=== PATIENT | male | born 1980 | race African-American/Black ===

== ENCOUNTER 2019-08-06 10:06 | Inpatient (IN) ==
[2019-08-06 11:07] LABS: Basophils % 0.6 % (0.0-0.8); Eosinophils # 0.1 10*3/uL (0.0-0.87); Eosinophils % 1.3 % (0.00-10.9); Hematocrit 53.7 VOL% (42.0-52.0); Hemoglobin 16.6 GM/DL (14.0-18.0); Immature Granulocytes % 0.4 %; Immature Granulocytes Absolute 0.03 #; Lymphocytes # 1.8 10*3/uL (1.4-4.0); Lymphocytes % 24.9 % (21.2-54.2); Mean Corpuscular HGB Conc 30.9 GM/DL (32-36); Mean Corpuscular Volume 87.2 FL (87-102); Mean Platelet Volume 10.7 FL (9.6-12.0); Monocytes % 9.4 % (1.7-12.7); Neutrophils % 63.4 % (38.7-73.9); Platelet Count 233 T/CUMM (130-400); Red Blood Count 6.16 MC/CUMM (3.8-5.5); Red Cell Distribution Width 17.3 % (9.3-17.3); White Blood Count 7.2 T/CUMM (4-12)
[2019-08-06 11:21] LABS: Calcium 8.3 MG/DL (8.5-10.1); Osmolality,Calculated 274.5 MOS/KG (273-304)
[2019-08-06] MEDS ORDERED: amLODIPine 5 MG TABLET PO STA (11:25)
[2019-08-06] MEDS ORDERED: LABETALOL 20 MG/4 ML SYRINGE IV STA (11:25)
[2019-08-06] MEDS ORDERED: ALBUTEROL/IPRATROPIUM 3 ML NEB RESP TX STA (11:33)
[2019-08-06 12:26] LABS: ABG Base Excess 4.1 MMOL/L (-2.5-2.5); ABG HCO3 27.9 MMOL/L (20-26); ABG PCO2 63.4 MM HG (35-48); ABG PH 7.326 (7.35-7.45); ABG PO2 68.4 MM HG (80-95); ABG TCO2 27.9 MMOL/L (23-27); Allen Test Positive
[2019-08-06] MEDS ORDERED: ACETAMINOPHEN 325 MG TABLET PO PRN (13:28)
[2019-08-06] MEDS ORDERED: ONDANSETRON 4 MG/2 ML VIAL IV PRN (13:28)
[2019-08-06] MEDS ORDERED: ALBUTEROL 2.5 MG/3 ML NEB RESP TX PRN (13:28)
[2019-08-06] MEDS ORDERED: ALBUTEROL/IPRATROPIUM 3 ML NEB RESP TX PRN (13:28)
[2019-08-06] MEDS ORDERED: LACTULOSE 20 GM/30 ML UDCUP PO PRN (13:28)
[2019-08-06] MEDS ORDERED: niCARdipine INJ 25 MG in SODIUM CHLORIDE 0.9% 240 ML IV PRN (13:32)
[2019-08-06 14:11] LABS: Risk Ratio 2.25; Thyroid Stimulating Hormone 0.345 uIU/ml (0.358-3.74)
[2019-08-06] MEDS ORDERED: hydrALAZINE 20 MG/1 ML VIAL IV ONE (14:49)
[2019-08-06] MEDS ORDERED: hydrALAZINE 20 MG/1 ML VIAL ONE (14:51)
[2019-08-06] MEDS ORDERED: hydrALAZINE 20 MG/1 ML VIAL IV PRN (15:03)
[2019-08-06] MEDS: SODIUM CHLORIDE 0.45% 1,000 ML IV SCH (15:20)
[2019-08-06] MEDS: methylPREDNISolone SOD SUC 40 MG/1 ML VIAL IV SCH ×2 (15:25→22:46)
[2019-08-06] MEDS: cefTRIAXone 1,000 MG in SYRINGE 1 EACH IV SCH (15:30)
[2019-08-06] MEDS: LOSARTAN 25 MG TABLET PO SCH ×2 (15:35→20:40)
[2019-08-06 16:07] LABS: ABG HCO3 28.8 MMOL/L (20-26); ABG Oxygen Saturation 94.3 % (95-100); ABG PCO2 56.9 MM HG (35-48); ABG PH 7.368 (7.35-7.45); ABG PO2 70.1 MM HG (80-95); ABG TCO2 27.3 MMOL/L (23-27); Allen Test Positive; Pt O2 Delivery Device BIPAP
[2019-08-06 17:17] LABS: Barbiturates Screen,Urine Negative (Negative); Benzodiazepines Screen,Urine Negative (Negative); Cannabinoid Screen,Urine Negative (Negative); Opiate Screen,Urine Negative (Negative); Phencyclidine Screen,Urine Negative (Negative)
[2019-08-06] MEDS ORDERED: LABETALOL 20 MG/4 ML SYRINGE IV PRN (18:06)
[2019-08-06] MEDS: FAMOTIDINE 20 MG/2 ML VIAL IV SCH (20:37)
[2019-08-06] MEDS: ENOXAPARIN 40 MG/0.4 ML SYRINGE SUBCUT SCH (20:39)
[2019-08-07] MEDS: SODIUM CHLORIDE 0.45% 1,000 ML IV SCH (00:12)
[2019-08-07 02:42] LABS: ABG HCO3 25.3 MMOL/L (20-26); ABG Oxygen Saturation 96.8 % (95-100); ABG PH 7.265 (7.35-7.45); ABG PO2 98.1 MM HG (80-95); ABG TCO2 26.6 MMOL/L (23-27)
[2019-08-07 02:48] LABS: ABG PCO2 69.7 MM HG (35-48)
[2019-08-07 04:38] LABS: Alanine Aminotransferase 22 U/L (16-61); Albumin 3.4 G/DL (3.4-5.0); Alkaline Phosphatase 81 U/L (45-117); Aspartate Amino Transferase 15 U/L (0-37); Bilirubin,Total < 0.39 MG/DL (0.2-1.0); Blood Urea Nitrogen 11 MG/DL (7-18); Calcium 9.2 MG/DL (8.5-10.1); Estimated Glom Filtration Rate 132 ML/MIN; Glucose 163 MG/DL (74-106); Osmolality,Calculated 283.3 MOS/KG (273-304); Total Protein 8.1 G/DL (6.4-8.3)
[2019-08-07 04:43] LABS: Basophils % 0.3 % (0.0-0.8); Hematocrit 53.5 VOL% (42.0-52.0); Hemoglobin 16.5 GM/DL (14.0-18.0); Immature Granulocytes % 0.5 %; Immature Granulocytes Absolute 0.04 #; Lymphocytes # 0.4 10*3/uL (1.4-4.0); Lymphocytes % 5.8 % (21.2-54.2); Mean Corpuscular HGB Conc 30.8 GM/DL (32-36); Mean Corpuscular Volume 87.7 FL (87-102); Mean Platelet Volume 11.8 FL (9.6-12.0); Monocytes % 1.8 % (1.7-12.7); Neutrophils % 91.6 % (38.7-73.9); Platelet Count 267 T/CUMM (130-400); Red Cell Distribution Width 17.6 % (9.3-17.3); White Blood Count 7.6 T/CUMM (4-12)
[2019-08-07 04:44] LABS: ABG Base Excess 1.1 MMOL/L (-2.5-2.5); ABG HCO3 25.2 MMOL/L (20-26); ABG Oxygen Saturation 95.4 % (95-100); ABG PH 7.258 (7.35-7.45); ABG PO2 85.1 MM HG (80-95); Allen Test Positive; Pt O2 Delivery Device BIPAP
[2019-08-07 04:48] LABS: ABG PCO2 71.3 MM HG (35-48)
[2019-08-07] MEDS: hydrALAZINE 20 MG/1 ML VIAL IV PRN ×2 (05:08→13:20)
[2019-08-07 05:09] LABS: Hypochromasia 1+; Lymphocytes 7 % (20-55); Platelet Estimate Adequate; Segmented Neutrophils 91 % (50-85); Total Cells Counted 100
[2019-08-07] MEDS: ALBUTEROL/IPRATROPIUM 3 ML NEB RESP TX SCH ×5 (07:15→23:43)
[2019-08-07] MEDS: methylPREDNISolone SOD SUC 40 MG/1 ML VIAL IV SCH ×3 (08:10→23:08)
[2019-08-07] MEDS: LOSARTAN 25 MG TABLET PO SCH ×3 (08:15→21:24)
[2019-08-07] MEDS: FAMOTIDINE 20 MG/2 ML VIAL IV SCH ×2 (08:15→21:24)
[2019-08-07] MEDS: amLODIPine 10 MG TABLET PO SCH (08:15)
[2019-08-07] MEDS ORDERED: LOSARTAN 25 MG TABLET PO SCH (15:00)
[2019-08-07] MEDS: cefTRIAXone 1,000 MG in SYRINGE 1 EACH IV SCH (16:52)
[2019-08-07] MEDS: ENOXAPARIN 40 MG/0.4 ML SYRINGE SUBCUT SCH (21:24)
[2019-08-08] MEDS: ALBUTEROL/IPRATROPIUM 3 ML NEB RESP TX SCH ×5 (03:13→20:50)
[2019-08-08] MEDS: hydrALAZINE 20 MG/1 ML VIAL IV PRN ×2 (03:31→13:33)
[2019-08-08 05:39] LABS: Calcium 8.8 MG/DL (8.5-10.1); Osmolality,Calculated 279.7 MOS/KG (273-304)
[2019-08-08] MEDS: amLODIPine 10 MG TABLET PO SCH (08:47)
[2019-08-08] MEDS: methylPREDNISolone SOD SUC 40 MG/1 ML VIAL IV SCH ×3 (08:47→23:39)
[2019-08-08] MEDS: FAMOTIDINE 20 MG/2 ML VIAL IV SCH ×2 (08:47→22:11)
[2019-08-08] MEDS: LOSARTAN 25 MG TABLET PO SCH ×2 (08:48→22:10)
[2019-08-08] MEDS: cefTRIAXone 1,000 MG in SYRINGE 1 EACH IV SCH (15:57)
[2019-08-08] MEDS: ENOXAPARIN 40 MG/0.4 ML SYRINGE SUBCUT SCH (22:10)
[2019-08-09] MEDS: ALBUTEROL/IPRATROPIUM 3 ML NEB RESP TX SCH ×3 (01:21→07:06)
[2019-08-09] MEDS: methylPREDNISolone SOD SUC 40 MG/1 ML VIAL IV SCH ×2 (08:38→14:04)
[2019-08-09] MEDS: LOSARTAN 25 MG TABLET PO SCH ×2 (08:40→21:58)
[2019-08-09] MEDS: amLODIPine 10 MG TABLET PO SCH (08:40)
[2019-08-09] MEDS: FAMOTIDINE 20 MG/2 ML VIAL IV SCH ×2 (08:40→21:58)
[2019-08-09] MEDS: POTASSIUM CHLORIDE 10 MEQ TABLET PO SCH (14:03)
[2019-08-09] MEDS: hydroCHLOROthiazide 25 MG TABLET PO SCH (14:03)
[2019-08-09] MEDS ORDERED: ALBUTEROL/IPRATROPIUM 3 ML NEB RESP TX SCH ×2 (15:00→19:00)
[2019-08-09] MEDS: cefTRIAXone 1,000 MG in SYRINGE 1 EACH IV SCH (15:57)
[2019-08-09] MEDS ORDERED: ALBUTEROL/IPRATROPIUM 3 ML NEB RESP TX PRN (19:19)
[2019-08-09] MEDS: ENOXAPARIN 40 MG/0.4 ML SYRINGE SUBCUT SCH (21:59)
[2019-08-10] MEDS: methylPREDNISolone SOD SUC 40 MG/1 ML VIAL IV SCH ×2 (00:54→11:40)
[2019-08-10 05:22] LABS: Calcium 8.8 MG/DL (8.5-10.1)
[2019-08-10] MEDS: amLODIPine 10 MG TABLET PO SCH (08:19)
[2019-08-10] MEDS: LOSARTAN 25 MG TABLET PO SCH (08:20)
[2019-08-10] MEDS: hydroCHLOROthiazide 25 MG TABLET PO SCH (08:20)
[2019-08-10] MEDS: POTASSIUM CHLORIDE 10 MEQ TABLET PO SCH (08:21)
[2019-08-10] MEDS: FAMOTIDINE 20 MG/2 ML VIAL IV SCH (08:22)
[2019-08-10 12:06] VITALS: BP 155/88
[2019-08-10] MEDS: cefTRIAXone 1,000 MG in SYRINGE 1 EACH IV SCH (14:52)
== END 2019-08-10 16:11 | disposition home or self-care (01) | DRG 189 ==
LOC: N.ED 10:06 → N.EDINP 13:28 → SUATTDRO 13:28 → N.ICU 14:02 → N.5E 08-08 14:49
PROVIDERS: ADMIT Internal Medicine; ATTEND Internal Medicine